=== PATIENT | male | born 1960 | race Caucasian/White ===

== ENCOUNTER 2023-06-13 13:16 | Outpatient (REF) | payer OTHER, MEDICAID, SELFPAY ==
--- NOTE | ~2023-06-13 | XR_ITS ---
EXAMINATION: XR SHOULDER, RIGHT CLINICAL INFORMATION: Pain in right shoulder COMPARISON: None available. TECHNIQUE: AP neutral, scapular Y, and axillary views of the right shoulder. FINDINGS: The bones and soft tissues are normal. No fracture. Glenohumeral and acromioclavicular alignment is anatomic with normal joint space. No abnormal soft tissue calcifications. XR/XR shoulder RT min 2V IMPRESSION: No bony abnormality.
== END 2023-06-13 13:17 | disposition home or self-care (01) ==
LOC: HO.HOSX 13:16
PROVIDERS: Visit Provider Physician Assistant
DX: M25.511 Pain in right shoulder (principal)
CPT/HCPCS: 20610; 73030; J3301

== ENCOUNTER 2023-06-13 13:46 | Outpatient (AMB) | payer OTHER, MEDICAID, SELFPAY ==
--- NOTE | 2023-06-13 14:12 | MHC.OFFVIS ---
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 Sandoval. Patient reports pain comes with certain movements. His pain increase last month, stating with a quick jerk motion while using a fly swatter. Denies injury, numbness or tingling. He denies any weakness in his shoulder. He denies any fevers or chills. He did undergo right shoulder arthroscopic surgery on 09/22/2022. He continues with his home stretching program. Allergies No Known Allergies Allergy (Verified 06/13/23 14:14) [facility] Surgical History (Updated 06/13/23 @ 14:26 by AYDEN Jiang) History of ankle surgery Hx of shoulder surgery Social History (Updated 06/13/23 @ 14:21 by AYDEN Jiang) Patient Tobacco Use Status: Never used Tobacco Current occupational status: unemployed Current occupation: right hand dominant Physical Exam Vital Signs: BMI result Body Mass Index 26.5 Const Other: Well-nourished well-developed very friendly male awake alert and oriented x3 in no acute distress Extrem Other: Bilateral upper extremity examination shows good capillary refill, no skin lesions noted, normal sensation light touch Right shoulder examination shows that the surgical incisions are well healed, no erythema slightly decreased range of motion compared to his left shoulder, mild to moderate discomfort resisted forward flexion, 5/5 strength with supraspinatus testing no instability Office Procedures Joint Injection/Drain Joint Injection/Drain Primary Site: right shoulder Prep: site was prepped using aseptic technique Injected: 40 mg of, Kenalog and 1% plain lidocaine Procedure: The patient tolerated the procedure well Coding 30537 - Large joint Procedure code (CPT) selection complete Results Reviewed Results Reviewed: 06/13/23 14:49 Lidocaine HCl 2 % MPF [Xylocaine 2 % MPF] 5 ml .ROUTE .STK-MED ONE Triamcinolone Acetonide [Kenalog-40] 40 mg .ROUTE .STK-MED ONE Assessment & Plan Assessment & Plan (1) Right shoulder pain: Code(s): M25.511 - Pain in right shoulder Plan Mr. Dueñas presents with right shoulder pain most likely due to rotator cuff tendinitis. I had a lengthy discussion with the patient regarding the treatment options. The risks and benefits of a cortisone injection were discussed at length with the patient. The patient wished to proceed. He tolerated the right shoulder cortisone injection well. He will continue with his home stretching program. The do's and don'ts of lifting were discussed at length with the patient. He will follow up with me on an as-needed basis should his symptoms not plateau at an unacceptable level over the next few months. Feel free to call me at any time should questions regarding his orthopedic management arise. I spent 22 minutes in reviewing the patient's records and imaging studies, seeing the patient and documenting in the medical record. Orders: Orders XR shoulder RT min 2V 06/13/23 M25.511 - Pain in right shoulder Naresh-Sandi Sparks PA-C AMB Joint Injection/Aspiration 06/13/23 M25.511 - Pain in right shoulder Patricio Sandoval MD Coding Level of Care Code Est Pt Level 2 (34304) Diagnoses Right shoulder pain M25.511 CPT Codes Coding - 50120 Large joint: 53687 - Large joint ([id number])
[2023-06-13 14:14] VITALS: BMI 26.5
== END 2023-06-13 15:01 | disposition home or self-care (01) ==
PROVIDERS: PCP Internal Medicine; Visit Provider Physician Assistant
DX: M25.511 Pain in right shoulder (principal)
CPT/HCPCS: 20610; 99204

== ENCOUNTER 2024-10-16 10:08 | Outpatient (REF) | payer MEDICARE, MEDICAID, SELFPAY | END 2024-10-16 10:09 | disposition home or self-care (01) | LOC: HO.HOSX 10:08 | PROVIDERS: Visit Provider Orthopaedic Surgery | DX: M25.561 Pain in right knee (principal) | CPT/HCPCS: 73562; 99212 ==

== ENCOUNTER 2024-10-16 10:24 | Outpatient (AMB) | payer MEDICARE, MEDICAID, SELFPAY ==
--- OUTSIDE RECORDS SUMMARY | 2024-10-16 10:27 | XMS_ITS ---
Author Name [facility] Organization Unknown History of Medication Use Medication Directions Dispensed Refills Start Date End Date Stat us ibuprofen (MOTRIN) 800 mg tablet Take 1 tablet (800 mg total) by mouth 3 times daily (every 8 hours) as needed for mild pain. 04/28/2023 active gabapentin (NEURONTIN) 300 MG capsule Take 1 capsule (300 mg total) by mouth nightly. 04/28/2023 active Problems Problem Status Onset Date Problem Type Date of Resoluti on Source Pain in left ankle and joints of left foot active EncounterDiagnosisAct CCT
--- NOTE | 2024-10-16 10:37 | MHC.OFFVIS ---
Vital Signs 10/16/24 10:49 Height 5 ft 10 in Weight 186 lb BMI 26.7 Intake Visit Reasons: Right knee pain and giving way Intake Note: Tima is a 63 year old male who presents with complaints of progressively worsening right knee pain and giving way. The patient describes his pain as sharp in nature. Most of the pain is along the medial and posterior aspects of his right knee. His symptoms have gotten somewhat worse over the last year in spite of continued non operative treatments. He did have a cortisone injection given into his right knee earlier this year by another provider which gave him only temporary relief. He has tried Tylenol and ibuprofen which gave him minimal relief. Allergies No Known Allergies Allergy (Verified 10/16/24 10:38) Medication List - Last Reconciled 10/16/24 by Patricio Sandoval MD ibuprofen 800 mg PO TID PRN PFSH Surgical History Hx of shoulder surgery History of ankle surgery Social History Patient Tobacco Use Status: Never used Tobacco Current occupational status: unemployed Current occupation: right hand dominant Physical Exam Vital Signs: BMI result Body Mass Index 26.7 Const Other: Well-nourished well-developed very friendly male awake alert and oriented x3 in no acute distress Extrem Other: Bilateral lower extremity examination shows good capillary refill, no skin lesions noted, normal sensation light touch Right knee examination shows a minimal effusion, minimal crepitus with range of motion, tenderness along his medial joint line, positive Renetta's test, no instability Results Reviewed Results Reviewed: Standing full weight-bearing x-rays of the patient's right knee taken previously show mild diffuse joint space narrowing, no acute bony abnormalities MRI of the patient's right knee shows mild diffuse degenerative changes as well as a tear of the medial meniscus Assessment & Plan Assessment & Plan (1) Tear of medial meniscus of right knee: Code(s): S83.241A - Other tear of medial meniscus, current injury, right knee, initial encounter Category: Medical Plan Mr. Dueñas presents with right knee pain and mechanical symptoms due to a medial meniscus tear. I had a lengthy discussion with the patient regarding the treatment options. At this point the patient's symptoms are tolerable to him. He will continue with his activity modifications. If his symptoms do worsen in the future we will further discuss the risks and benefits of right knee arthroscopic surgery. That surgery would most likely involve right knee arthroscopic partial medial meniscectomy. Feel free to call me at any time should questions regarding his orthopedic management arise. I spent 22 minutes in reviewing the patient's records and imaging studies, seeing the patient and documenting in the medical record. Orders: Orders XR knee RT 3V Today M25.561 - Pain in right knee Medications: New methylprednisolone (Medrol (Michael)) PO PER PKG DIR 21 ea 0RF Coding Level of Care Code Est Pt Level 3 (15041) Complex EM visit Add On G2211 Diagnoses Tear of medial meniscus of right knee S83.241A
[2024-10-16 10:49] VITALS: BMI 26.7
== END 2024-10-16 11:04 | disposition home or self-care (01) ==
PROVIDERS: PCP Internal Medicine; Visit Provider Orthopaedic Surgery
DX: S83.241A Other tear of medial meniscus, current injury, right knee, initial encounter (principal)
CPT/HCPCS: 99213; G2211

== ENCOUNTER 2024-12-12 07:08 | Outpatient (REF) | payer BC, MEDICAID, SELFPAY ==
--- NOTE | ~2024-12-12 | XR_ITS ---
EXAMINATION: XR ELBOW, RIGHT CLINICAL INFORMATION: M25.521 - Pain in right elbow COMPARISON: None available. TECHNIQUE: AP, lateral, and oblique views of the right elbow. FINDINGS: No fracture, dislocation, or suspicious bone lesion. Normal alignment. No evidence of elbow joint effusion. Joint spaces appear normal. Small enthesophytes abutting the epicondyles, and radial tuberosity. Moderate size olecranon spur with mild overlying soft tissue swelling. Soft tissues otherwise normal. XR/XR elbow RT min 3V IMPRESSION: 1. No acute bony abnormalities. No joint effusion. 2. Moderate size olecranon spur with mild overlying soft tissue swelling. 3. Enthesopathy of the epicondyles and radial tuberosity. Electronically signed by: Jaren Corley MD 12/12/2024 02:48 PM JO[facility]IM
--- OUTSIDE RECORDS SUMMARY | 2024-12-12 07:10 | XMS_ITS | Clinical Summary ---
Author Organization [facility] Address [address] [place] [address] Care Team Providers Care Metallurgical Lab Technician Name Role Phone Tima Ferguson MD Primary Care Provider [phone] Allergies No known active allergies Medications Medication Sig Dispensed Refills Start Date End Date Status gabapentin (NEURONTIN) 600 MG tablet Take 600 mg by mouth every night at bedtime. 0 06/21/2022 Active ibuprofen 800 MG tablet TAKE 1 TABLET BY MOUTH EVERY 8 HOURS WITH MEALS 0 06/22/2022 Active Active Problems Problem Noted Date Diagnosed Date Septic olecranon bursitis of right elbow 021 Family History Medical History Relation Name Comments Diabetes Father Relation Name Status Comments Father Social History Tobacco Use Types Packs/Day Years Used Date Smoking Tobacco: Never Assessed Tobacco Cessation:Counseling Given: Not Answered Sex and Gender Information Value Date Recorded Sex Assigned at Not on file Gender Identity Not on file Sexual Orientation Not on file Job Start Date Occupation Industry Not on file Not on file Not on file Last Filed Vital Signs Vital Sign Reading Time Taken Comments Blood Pressure - - Pulse - - Temperature - - Respiratory Rate - - Oxygen Saturation - - Inhaled Oxygen Concentration - - Weight 83.5 kg (184 lb) 08/15/2022 10:31 AM EDT Height 167.6 cm (5' 6 ) 08/15/2022 10:31 AM EDT Body Mass Index 29.7 08/15/2022 10:31 AM EDT Plan of Treatment Health Maintenance Due Date Last Done Comments Hepatitis C Screening 1960 COVID-19 Vaccine (#1) 05/10/1963 Depression Screening 1974 BMI Counseling 1980 Preventative Health Evaluation 1980 Colon Cancer Screening (Colonoscopy) 2007 Shingrix-Zoster Vaccine (1 of 2) 2012 DTap / Tdap / Td (2 - Tdap) 01/04/2015 01/04/2005 Influenza Vaccine (#1) 2024 RSV Adult > 60+ Yrs or Pregn ant (1 - 1-dose 75+ series) 2037 Hepatitis B Vaccines Aged Out No long er eligible based on patient's age to complete this topic Pneumococcal Vaccine Aged Out No long er eligible based on patient's age to complete this topic RSV Ped < 20 months Aged Out No longe r eligible based on patient's age to complete this topic Care Teams Metallurgical Lab Technician Relationship Specialty Start Date End Date Vinagre, Faisal, MD [address] [place] [address] PCP - General Internal Medicine 05/31/21
--- OUTSIDE RECORDS SUMMARY | 2024-12-12 07:10 | XMS_ITS | Encounter Summary ---
Author Organization [facility] Address [address] [place] [address] Care Team Providers Care Fish Net Maker Name Role Phone Unavailable Primary Care Provider Unavailabl e Encounter Details Date Type Department Care Team (Latest Contact Info) Description 11/26/2020 Lab Requisition [facility] COVID [address] Through [address] [place] [address] [address] [place] [address] Vincent Dockery MD [address] [place] [address] [phone] Encounter for laboratory testing for COVID-19 virus Social History Tobacco Use Types Packs/Day Years Used Date Smoking Tobacco: Never Assessed Sex and Gender Information Value Date Recorded Sex Assigned at Not on file Gender Identity Not on file Sexual Orientation Not on file documented as of this encounter Plan of Treatment Not on file documented as of this encounter Procedures Procedure Name Priority Date/Time Associated Diagnosis Comments COVID-19 RT-PCR ([facility]) Routine 11/26/2020 4:32 PM EST Encounter for laboratory testing for COVID-19 virus [ICD-10-CM] documented in this encounter Results * COVID-19 RT-PCR (Abdi Yuan) (11/26/2020 4:32 PM EST) COVID-19 RT-PCR SARS-COV-2 NOT DETECTED Not Detected 11/28/2020 2:11 PM EST [employer] Comment: ADDITIONAL INFORMATION The [facility] COVID-19 RT-PCR Assay is Real-Time Reverse Physics Department Chair Polymerase Chain Reaction (compressor assembler-PCR) for the in vitro qualitative detection of three SARS-Cov-2 target sequences unique to the coronavirus disease 2019 (COVID-19). This is an Emergency Use Authorization (EUA) in vitro diagnostic (IVD) test that has been modified to include the [employer] automated liquid handler. Its analytical performance characteristics have been determined by the department of sociology chair and verified by [facility] in a manner consistent with CLIA requirements. This test may be used for clinical purposes and should not be regarded as purely investigational or for research use only. This laboratory is certified under the Clinical Laboratory Improvement Amendments of 1988 (CLIA) as qualified to perform high complexity clinical testing. Reference interval for this testing is SARS-CoV-2 Not Detected. Fact sheets for this Emergency Use Authorization assay can be found at the following links: For Healthcare Providers: https://www.fda.gov/media/692655/download For Patients: https://www.[employer].gov/media/953926/download TEST LIMITATIONS Positive results are indicative of the presence of SARS-CoV-2 RNA; clinical correlation with patient history and other diagnostic information is necessary to determine patient infection status. Positive results do not rule out bacterial infection or co-infection with other viruses. The agent detected may not be the definite cause of disease. Negative results do not exclude SARS-CoV-2 infection and should not be used as the sole basis for patient management decisions. Negative results must be combined with clinical observations, patient history, and epidemiological information. Improper sample collection, transport or storage may impede the ability of the assay to detect target sequences. Inconclusive specimens are not repeated, and recollection and submission of a new sample is recommended. The performance of the TaqPath COVID-19 Combo Kit was established using nasopharyngeal swab, nasopharyngeal aspirate, and bronchoalveolar lavage (BAL) specimens. The limit of detection for the assay was determined to be 0.75copies/uL in the specimens of nasopharyngeal swab. Other specimen types may be need for further validation before testing on this system. For further details refer to the [employer] TaqPath COVID-19 Combo Kit EUA submission (https://www.[employer].gov/media/056430/download). ----- Test performed by [facility], [address] [place] [address] CLIA# [id number] ?[id number] ? Smooth Nathan M.D., Ph.D., [facility], Clinical Sales Effectiveness Manager Microbiology Nasopharyngeal swab / Unknown 11/26/2020 4:32 PM EST 11/26/2020 4:32 PM EST Narrative [facility] - 11/28/2020 2:11 PM EST Performed at [facility], [address] [place] [address], [place] Lic 0695, CLIA [id number] Vincent Dockery MD MICROBIOLOGY - GENER AL ORDERABLES [address] [place] [address] documented in this encounter Visit Diagnoses Diagnosis Encounter for laboratory testing for COVID-19 virus documented in this encounter
--- OUTSIDE RECORDS SUMMARY | 2024-12-12 07:10 | XMS_ITS | Clinical Summary ---
Author Organization [facility] Address [address] [place] [address] Care Team Providers Care Cleaning Team Member Name Role Phone Unavailable Primary Care Provider Unavailabl e Allergies No known active allergies Medications Medication Sig Dispensed Refills Start Date End Date Status gabapentin (NEURONTIN) 300 MG capsuleIndications:P ain in left ankle and joints of left foot Take 1 capsule (300 mg total) by mouth nightly. 30 capsule 1 05/29/2023 Active ibuprofen (MOTRIN) 800 mg tabletIndications:Pa in in left ankle and joints of left foot Take 1 tablet (800 mg total) by mouth 3 times daily (every 8 hours) as needed for mild pain. 30 tablet 1 05/29/2023 Active gabapentin (NEURONTIN) 300 MG capsuleIndications:P ain in left ankle and joints of left foot Take 1 capsule (300 mg total) by mouth nightly. 30 capsule 3 04/24/2023 Active ibuprofen (MOTRIN) 800 mg tabletIndications:Pa in in left ankle and joints of left foot Take 1 tablet (800 mg total) by mouth nightly. 30 tablet 04/24/2023 Active Social History Tobacco Use Types Packs/Day Years Used Date Smoking Tobacco: Never Assessed Sex and Gender Information Value Date Recorded Sex Assigned at Not on file Gender Identity Not on file Sexual Orientation Not on file Plan of Treatment Health Maintenance Due Date Last Done Comments Hepatitis C Virus Screening 1960 HIV Screening 1975 DTaP/Tdap/Td Vaccines (1 - Tdap) 1981 Colonoscopy 2007 Pneumococcal Vaccines 50+ (1 of 1 - PCV) 2012 Zoster (Shingles) Vaccine (1 of 2) 2012 Influenza Vaccine 06/05/2024 COVID-19 Vaccine ( - 2023-2 5 season) 2024 RSV Vaccine 60 years and old er and Patients (1 - 1-dose 75+ series) 2037 Hepatitis B Vaccines Aged Out No long er eligible based on patient's age to complete this topic Pneumococcal Vaccine: Pediat nery (0-5 Years) and At-Risk Patients (6 to 49 Years) Aged Out No longer [place] [id number] Tejas Dueñas Personal/Family Self [address] [place] [phone]
== END 2024-12-12 07:09 | disposition home or self-care (01) ==
LOC: HO.HOSX 07:08
DX: M21.921 Unspecified acquired deformity of right upper arm (principal)
CPT/HCPCS: 73080

== ENCOUNTER 2024-12-12 14:15 | Outpatient (AMB) | payer BC, MEDICAID, SELFPAY ==
--- OUTSIDE RECORDS SUMMARY | 2024-12-12 14:34 | XMS_ITS | Encounter Summary ---
Author Organization [facility] Address [address] [place] [address] Care Team Providers Care Administrative Processor Name Role Phone Unavailable Primary Care Provider Unavailabl e Encounter Details Date Type Department Care Team (Latest Contact Info) Description 11/26/2020 Lab Requisition [facility] COVID [address] Through [address] [place] [address] [address] [place] [address] Vincent Dockery MD [address] [place] [address] [phone] Encounter for laboratory testing for COVID-19 virus [...] Date/Time Associated Diagnosis Comments COVID-19 RT-PCR ([facility]) Routine 11/26/2020 4:32 PM EST Encounter for laboratory testing for COVID-19 virus [ICD-10-CM] documented in this encounter Results * COVID-19 RT-PCR (Abdi Yuan) (11/26/2020 4:32 PM EST) COVID-19 RT-PCR SARS-COV-2 NOT DETECTED Not Detected 11/28/2020 2:11 PM EST [email or web address] Comment: ADDITIONAL INFORMATION The [facility] COVID-19 RT-PCR Assay is Real-Time Reverse Market Development Executive Polymerase Chain Reaction (buggy loader-PCR) for the in vitro qualitative detection of three SARS-Cov-2 target sequences unique to the coronavirus disease 2019 (COVID-19). This is an Emergency Use Authorization (EUA) in vitro diagnostic (IVD) test that has been modified to include the [employer] automated liquid handler. Its analytical performance characteristics have been determined by the switch crew supervisor and verified by [facility] in a manner consistent with CLIA [...] at the following links: For Healthcare Providers: https://www.fda.gov/media/431838/download For Patients: https://www.Meditech.gov/media/728418/download TEST LIMITATIONS Positive results are indicative of [...] system. For further details refer to the [employer] TaqPath COVID-19 Combo Kit EUA submission (https://www.Meditech.gov/media/335506/download). ----- Test performed by [facility], [address] [place] [address] CLIA# [id number] ?[id number] ? Smooth Nathan M.D., Ph.D., [facility], Clinical Assistant Family Teacher Microbiology Nasopharyngeal swab / Unknown 11/26/2020 4:32 PM EST 11/26/2020 4:32 PM EST Narrative [facility] - 11/28/2020 2:11 PM EST Performed at [facility], [address] [place] [address], [place] Lic 0695, CLIA [id number] Vincent Dockery MD MICROBIOLOGY - GENER AL ORDERABLES [address] [place] [address] documented in this encounter Visit Diagnoses Diagnosis Encounter for laboratory testing for COVID-19 virus documented in this encounter
--- OUTSIDE RECORDS SUMMARY | 2024-12-12 14:34 | XMS_ITS | Clinical Summary ---
Author Organization [facility] Address [address] [place] [address] Care Team Providers Care Proof Press Operator Name Role Phone Unavailable Primary Care Provider [...] [place] [id number] Tejas Dueñas Personal/Family Self [address] [place] [phone]
--- OUTSIDE RECORDS SUMMARY | 2024-12-12 14:34 | XMS_ITS | Clinical Summary ---
Author Organization [facility] Address [address] [place] [address] Care Team Providers Care Precision Farming Coordinator Name Role Phone Tima Ferguson MD Primary Care Provider [phone] Allergies No known active allergies Medications Medication [...] age to complete this topic Care Teams Precision Farming Coordinator Relationship Specialty Start Date End Date Vinagre, Faisal, MD [address] [place] [address] PCP - General Internal Medicine 05/31/21
[2024-12-12 14:36] VITALS: BMI 26.5
--- NOTE | 2024-12-12 14:36 | A.OFFVIS_ITS ---
Vital Signs 12/12/24 14:36 Height 5 ft 10 in Weight 185 lb BMI 26.5 Intake Visit Reasons: Newprob-Right elbow pain Intake Note: Tima is a 64 year old right hand dominant male who presents today for a new problem visit with complaints of right elbow pain. Patient rpeorts that he has had pain in the right elbow for quite some time now. His pain started off intermittent but has grown consistently painful. The elbow becomes inflamed and red to where he is unable to bend fully. He takes ibuprofen 800 mg when his pain increased. He has some mild numbness and tingling in the hand and had increased pain when making a fist. He reports history of having bone spurs removed from his right shoulder with Dr. Sandoval . Allergies No Known Allergies Allergy (Verified 10/16/24 10:38) [facility] HPI Newprob-Right elbow pain: Details: Tima is a 64 year old right hand dominant male who presents today for a new problem visit with complaints of right elbow pain. Patient rpeorts that he has had pain in the right elbow for quite some time now. His pain started off intermittent but has grown consistently painful. The elbow becomes inflamed and red to where he is unable to bend fully. He takes ibuprofen 800 mg when his pain increased. He has some mild numbness and tingling in the hand and had increased pain when making a fist. He reports history of having bone spurs removed from his right shoulder with Dr. Sandoval . [facility] Surgical History Hx of shoulder surgery History of ankle surgery Social History Patient Tobacco Use Status: Never used Tobacco Current occupational status: unemployed Current occupation: right hand dominant Review of Systems Const All systems reviewed & are unremarkable except as noted in HPI and below Physical Exam Vital Signs: BMI result Body Mass Index 26.5 Extrem Other: Patient's right elbow slightly edematous to inspection No erythema, ecchymosis noted No lacerations, abrasions, open areas No evidence of infection Patient reports no tenderness to palpation of the olecranon process of the right elbow However, there is a palpable hard deformity of the olecranon process bone, consistent with bone spur viewed on x-ray Patient was able to flex the right elbow to approximately 160 degrees without difficulty Patient is able to extend the right elbow to 0 degrees without difficulty Distal sensation intact Capillary refill brisk Results Reviewed Results Reviewed: X-rays obtained in the office today and independently reviewed by me, Corey Gaxiola PA-C, demonstrate marked spurring of the olecranon process of the right elbow, concerning for bone spur versus calcific tendinitis of distal triceps tendon. Assessment & Plan Assessment & Plan (1) Acquired deformity of right elbow: Code(s): M21.921 - Unspecified acquired deformity of right upper arm Category: Medical Plan 1. Bone spur of right elbow Patient is educated about this condition Patient is educated about the typical treatment course At this time, patient was informed that this bone spur is not something that we would be able to remove in our practice Patient was offered a referral to physical therapy for range of motion and strengthening of the right elbow, but declines Patient states that he will follow-up with [facility], as he already has been evaluated at [facility] for this condition and was told that they did not perform this surgery either Patient will follow-up as needed with any acute concerns Orders: Orders XR elbow RT min 3V Today M25.521 - Pain in right elbow Coding Level of Care Code Est Pt Level 3 (56483) Diagnoses Acquired deformity of right elbow M21.921
== END 2024-12-12 14:51 | disposition home or self-care (01) ==
PROVIDERS: PCP Internal Medicine
DX: M21.921 Unspecified acquired deformity of right upper arm (principal)
CPT/HCPCS: 99213

== ENCOUNTER → 2024-12-12 14:31 | Outpatient (BNV) | payer BC, MEDICAID, SELFPAY | PROVIDERS: Visit Provider Radiology Diagnostic Radiology | DX: M70.21 Olecranon bursitis, right elbow (principal) | CPT/HCPCS: 73080 ==

== ENCOUNTER 2025-03-10 10:03 | Outpatient (AMB) | payer BC, MEDICAID, SELFPAY ==
[2025-03-10 10:09] VITALS: BMI 26.5
--- NOTE | 2025-03-10 10:09 | A.OFFVIS_ITS ---
Vital Signs 03/10/25 10:09 03/10/25 10:09 Height 5 ft 10 in 5 ft 10 in Weight 185 lb 185 lb BMI 26.5 26.5 Intake Visit Reasons: Left knee pain and giving way Intake Note: Tima is a 64 year old male who presents with complaints of progressively worsening left knee pain and giving way. Describes his pain as sharp in nature. Most of his pain is along the medial aspect of his knee. The patient's symptoms have gotten worse over the last 6 months in spite of continued non operative treatments. His symptoms did worsen several months ago while he was in [place]. He was given a cortisone injection at that time which gave him temporary relief. He states that his left knee will give out several times per day. He has failed the last 6 weeks of conservative treatment which have included Tylenol, ibuprofen, a home exercise program and physical therapy exercises. Allergies No Known Allergies Allergy (Verified 03/10/25 10:16) Medication List - Last Reconciled 03/10/25 by Patricio Sandoval MD ibuprofen 800 mg PO TID PRN omeprazole 20 mg PO DAILY PFSH Surgical History Hx of shoulder surgery History of ankle surgery Social History Patient Tobacco Use Status: Never used Tobacco Current occupational status: unemployed Current occupation: right hand dominant Physical Exam Vital Signs: BMI result Body Mass Index 26.5 Const Other: Well-nourished well-developed very friendly male awake alert and oriented x3 in no acute distress Extrem Other: Bilateral lower extremity examination shows good capillary refill, no skin lesions noted, normal sensation light touch Left knee examination shows a minimal effusion, minimal crepitus with range of motion, tenderness along his medial joint line, positive Renetta's test, no instability Results Reviewed Results Reviewed: Standing full weight-bearing x-rays of the patient's left knee show mild diffuse joint space narrowing, no acute bony abnormalities Assessment & Plan Assessment & Plan (1) Tear of medial meniscus of left knee: Code(s): S83.242A - Other tear of medial meniscus, current injury, left knee, initial encounter Category: Medical Plan Mr. Dueñas presents with progressively worsening left knee pain and mechanical symptoms most likely due to a medial meniscus tear. Thus, I will send the patient for an MRI of his left knee for further evaluation. I will see him back once the MRI is completed to discuss the findings and treatment options. He will contact me prior to that time should his symptoms worsen in any way. I spent 20 minutes in reviewing the patient's records and imaging studies, seeing the patient and documenting in the medical record. Orders: Orders XR knee LT 3V Today M25.562 - Pain in left knee MR knee LT wo con Today S83.242A - Other tear of medial meniscus, current injury, left knee, initial encounter Coding Level of Care Code Est Pt Level 3 (74771) Complex EM visit Add On G2211 Diagnoses Tear of medial meniscus of left knee S83.242A
--- OUTSIDE RECORDS SUMMARY | 2025-03-10 11:27 | XMS_ITS | Clinical Summary ---
Author Organization [facility] Address [address] [place] [address] Care Team Providers Care Leather Tooler Name Role Phone Unavailable Primary Care Provider Unavailabl e Allergies No known active allergies Medications gabapentin (NEURONTIN) 300 MG capsuleIndicati ons:Pain in left ankle and joints of left foot Take 1 capsule (300 mg total) by mouth nightly. 30 capsule 1 05/29/2023 Active ibuprofen (MOTRIN) 800 mg tabletIndicatio ns:Pain in left ankle and joints of left foot Take 1 tablet (800 mg total) by mouth 3 times daily (every 8 hours) as needed for mild pain. 30 tablet 1 05/29/2023 Active gabapentin (NEURONTIN) 300 MG capsuleIndicati ons:Pain in left ankle and joints of left foot Take 1 capsule (300 mg total) by mouth nightly. 30 capsule 3 04/24/2023 Active ibuprofen (MOTRIN) 800 mg tabletIndicatio ns:Pain in left ankle and joints of left foot Take 1 tablet (800 mg total) by mouth nightly. 30 tablet 04/24/2023 Active Social History Tobacco Use Types Packs/Day Years Used Date Smoking Tobacco: Never Assessed Sex and Gender Information Value Date Recorded Sex Assigned at Not on file Legal Sex Male 7:41 PM EST Gender Identity Not on file Sexual Orientation Not on file Plan of Treatment Health Maintenance Due Date Last Done Comments Hepatitis C Virus Screening 1960 HIV Screening 1975 DTaP/Tdap/Td Vaccines (1 - Tdap) 1981 Colonoscopy 2007 Pneumococcal Vaccines 50+ (1 of 1 - PCV) 2012 Zoster (Shingles) Vaccine (1 of 2) 2012 COVID-19 Vaccine ( - 2023-2 5 season) 2024 Influenza Vaccine 06/05/2025 RSV Vaccine 60 years and old er and Patients (1 - 1-dose 75+ series) 2037 Hepatitis B Vaccines Aged Out No long er eligible based on patient's age to complete this topic [facility]
--- OUTSIDE RECORDS SUMMARY | 2025-03-10 11:27 | XMS_ITS | Clinical Summary ---
Author Organization [facility] Address [address] [place] [address] Care Team Providers Care Supervisor Wood Crew Name Role Phone Tima Ferguson MD Primary Care Provider [phone] Allergies No known active allergies Medications Medication [...] age to complete this topic Care Teams Supervisor Wood Crew Relationship Specialty Start Date End Date Vinagre, Faisal, MD [address] [place] [address] PCP - General Internal Medicine 05/31/21
--- OUTSIDE RECORDS SUMMARY | 2025-03-10 11:27 | XMS_ITS | Encounter Summary ---
Author Organization [facility] Address [address] [place] [address] Care Team Providers Care Md Ophthalmologist Name Role Phone Unavailable Primary Care Provider Unavailabl e Encounter Details Date Type Department Care Team (Latest Contact Info) Description 11/26/2020 Lab Requisition [facility] COVID [address] Through [address] [place] [address] [address] [place] [address] Vincent Dockery MD [address] [place] [address] Encounter for laboratory testing for COVID-19 virus [...] Date/Time Associated Diagnosis Comments COVID-19 RT-PCR ([facility]) Routine 11/26/2020 4:32 PM EST Encounter for laboratory testing for COVID-19 virus [ICD-10-CM] documented in this encounter Results * COVID-19 RT-PCR ([facility]) (11/26/2020 4:32 PM EST) COVID-19 RT-PCR SARS-COV-2 NOT DETECTED Not Detected 11/28/2020 2:11 PM EST [employer] Comment: ADDITIONAL INFORMATION The [facility] COVID-19 RT-PCR Assay is Real-Time Reverse Textiles Printer Polymerase Chain Reaction (mobile home mechanic-PCR) for the in vitro qualitative detection of three SARS-Cov-2 target sequences unique to the coronavirus disease 2019 (COVID-19). This is an Emergency Use Authorization (EUA) in vitro diagnostic (IVD) test that has been modified to include the [employer] automated liquid handler. Its analytical performance characteristics have been determined by the field artillery crewmember and verified by The [facility] in a manner consistent with CLIA requirements. [...] at the following links: For Healthcare Providers: https://www.fda.gov/media/545659/download For Patients: https://www.Ketchuppp.gov/Concept.io/450850/download TEST LIMITATIONS Positive results are indicative of [...] system. For further details refer to the [employer] TaqPath COVID-19 Combo Kit EUA submission (https://www.Ketchuppp.gov/media/213528/download). ----- Test performed by The [facility] for [facility], [address] [place] [address] CLIA# [id number] ?[id number] ? Smooth Nathan M.D., Ph.D., [facility] [place], Clinical Director Of Front Office Microbiology Nasopharyngeal swab / Unknown 11/26/2020 4:32 PM EST 11/26/2020 4:32 PM EST Narrative [facility] - 11/28/2020 2:11 PM EST Performed at [facility], [address] [place] [address], [place] Lic 0695, CLIA [id number] us Vincent Dockery MD MICROBIOLOGY - GENERAL ORDERA BLES Final Result [facility] [address] [facility] [place] [address] documented in this encounter Visit Diagnoses Diagnosis Encounter for laboratory testing for COVID-19 virus documented in this encounter
== END 2025-03-10 10:24 | disposition home or self-care (01) ==
LOC: HO.HOS 10:03
PROVIDERS: Visit Provider Orthopaedic Surgery
DX: S83.242A Other tear of medial meniscus, current injury, left knee, initial encounter (principal)
CPT/HCPCS: 99213

== ENCOUNTER → 2025-03-10 10:04 | Outpatient (BNV) | payer BC, MEDICAID, SELFPAY | PROVIDERS: Visit Provider Radiology Diagnostic Radiology | DX: M25.562 Pain in left knee (principal) | CPT/HCPCS: 73562 ==

== ENCOUNTER 2025-03-10 10:52 | Outpatient (REF) | payer MEDICARE, MEDICAID, SELFPAY ==
--- NOTE | ~2025-03-10 | XR_ITS ---
EXAMINATION: XR KNEE, LEFT CLINICAL INFORMATION: M25.562 - Pain in left knee COMPARISON: None available. TECHNIQUE: Three views of the left knee. FINDINGS: No fracture, dislocation, or suspicious bone lesion. Normal bone mineralization. Normal alignment. Minimal medial joint space narrowing. Lateral and patellofemoral compartment joint spaces are normal. No significant joint effusion. Soft tissues appear normal. XR/XR knee LT 3V IMPRESSION: 1. No acute bony abnormalities left knee. 2. Minimal medial compartment osteoarthritis. Electronically signed by: Jaren Corley MD 03/10/2025 10:22 AM EDT
--- OUTSIDE RECORDS SUMMARY | 2025-03-11 12:15 | XMS_ITS | Encounter Summary ---
Author Organization [facility] Address [address] [place] [address] Care Team Providers Care Manager Winter Name Role Phone Unavailable Primary Care Provider Unavailabl e Encounter Details Date Type Department Care Team (Latest Contact Info) Description 11/26/2020 Lab Requisition [facility] COVID Drive Through [address] [place] [address] [address] [place] [address] Vincent Dockery MD [address] [place] [address] Encounter for laboratory testing for COVID-19 virus [...] Date/Time Associated Diagnosis Comments COVID-19 RT-PCR ([facility]) Routine 11/26/2020 4:32 PM EST Encounter for laboratory testing for COVID-19 virus [ICD-10-CM] documented in this encounter Results * COVID-19 RT-PCR ([facility]) (11/26/2020 4:32 PM EST) COVID-19 RT-PCR SARS-COV-2 NOT DETECTED Not Detected 11/28/2020 2:11 PM EST [employer] Comment: ADDITIONAL INFORMATION The [facility] COVID-19 RT-PCR Assay is Real-Time Reverse Seasoner Hand Polymerase Chain Reaction (technical services assistant-PCR) for the in vitro qualitative detection of three SARS-Cov-2 target sequences unique to the coronavirus disease 2019 (COVID-19). This is an Emergency Use Authorization (EUA) in vitro diagnostic (IVD) test that has been modified to include the [facility] automated liquid handler. Its analytical performance characteristics have been determined by the snuff drier and verified by The [facility] in a manner consistent with CLIA requirements. [...] at the following links: For Healthcare Providers: https://www.fda.gov/media/026355/download For Patients: https://www.StoryBlender.gov/Mobixell Networks/665286/download TEST LIMITATIONS Positive results are indicative of [...] system. For further details refer to the [employer] TaqPath COVID-19 Combo Kit EUA submission (https://www.StoryBlender.gov/media/580062/download). ----- Test performed by The [facility] for [facility], [address] [place] [address] CLIA# [id number] ?[id number] ? Smooth Nathan M.D., Ph.D., [facility] [place], Clinical Plant Production Worker Microbiology Nasopharyngeal swab / Unknown 11/26/2020 4:32 PM EST 11/26/2020 4:32 PM EST Narrative [facility] - 11/28/2020 2:11 PM EST Performed at [facility], [address] [place] [address], [place] Lic 0695, CLIA [id number] us Vincent Dockery MD MICROBIOLOGY - GENERAL ORDERA BLES Final Result [facility] [address] [facility] [place] [address] documented in this encounter Visit Diagnoses Diagnosis Encounter for laboratory testing for COVID-19 virus documented in this encounter
--- OUTSIDE RECORDS SUMMARY | 2025-03-11 12:15 | XMS_ITS | Clinical Summary ---
Author Organization [facility] Address [address] [place] [address] Care Team Providers Care Cut Out Marker Name Role Phone Tima Ferguson MD Primary Care Provider [phone] Allergies No known active allergies Medications Medication [...] age to complete this topic Care Teams Cut Out Marker Relationship Specialty Start Date End Date Vinagre, Faisal, MD [address] [place] [address] PCP - General Internal Medicine 05/31/21
--- OUTSIDE RECORDS SUMMARY | 2025-03-11 12:15 | XMS_ITS | Clinical Summary ---
Author Organization [facility] Address [address] [place] [address] Care Team Providers Care Family Practice Nurse Practitioner Name Role Phone Unavailable Primary Care Provider [...] patient's age to complete this topic Insurance [facility]
== END 2025-03-10 10:53 | disposition home or self-care (01) ==
LOC: HO.HOSX 10:52
PROVIDERS: Visit Provider Orthopaedic Surgery
DX: M25.562 Pain in left knee (principal)
CPT/HCPCS: 73562

== ENCOUNTER → 2025-03-29 09:21 | Outpatient (BNV) | payer MEDICARE, MEDICAID, SELFPAY | PROVIDERS: Visit Provider Radiology Diagnostic Radiology | DX: S83.242A Other tear of medial meniscus, current injury, left knee, initial encounter (principal) | CPT/HCPCS: 73721 ==

== ENCOUNTER 2025-03-29 09:24 | Outpatient (REF) | payer MEDICARE, MEDICAID, SELFPAY ==
--- NOTE | ~2025-03-29 | MR_ITS ---
CLINICAL HISTORY: S83.242A - Other tear of medial meniscus, current injury, left knee, ini... MR left knee without contrast Comparison: DX/SR - XR KNEE LT 3V - 03/10/25 10:04 EDT Findings: There is increased signal in the posterior horn of the medial meniscus with abnormal signal reaching the articular surface on a single image, grade 2b. The lateral meniscus is intact. The anterior and posterior cruciate ligaments are intact. The medial and lateral collateral ligaments are intact. There is edema in the subcutaneous fat superficial to the lateral collateral ligaments and anteriorly. The extensor mechanism is intact. There is a mild amount of increased signal in the quadriceps tendon at its insertion upon the patella may indicate mild tendinopathy. There is mild edema in the prepatellar subcutaneous fat. No joint effusion. Subcentimeter gore's cyst. No fracture, stress reaction or aggressive osseous lesion. 7 mm bone island in the lateral tibial plateau. 6 mm cyst in the fibular head. Partial-thickness chondromalacia in the patellofemoral compartment at medial patellar facet. Signal abnormality within cartilage in medial tibiofemoral compartment with a mild amount of partial-thickness chondromalacia. The hyaline cartilage is otherwise preserved. Impression: Suspect tear of the posterior horn of the medial meniscus. This document has been electronically signed by: Marivel Fair MD on 03/31/2025 13:28:44
--- OUTSIDE RECORDS SUMMARY | 2025-03-29 09:27 | XMS_ITS | Encounter Summary ---
Author Organization [facility] Address [address] [place] [address] Care Team Providers Care Color Worker Name Role Phone Unavailable Primary Care Provider Unavailabl e Encounter Details Date Type Department Care Team (Latest Contact Info) Description 11/26/2020 Lab Requisition [facility] COVID Drive Through [address] [place] [address] [address] [place] [address] Vincent Dockery MD [address] [place] [address] Encounter for laboratory testing for COVID-19 virus [...] Date/Time Associated Diagnosis Comments COVID-19 RT-PCR ([facility]) Routine 11/26/2020 4:32 PM EST Encounter for laboratory testing for COVID-19 virus [ICD-10-CM] documented in this encounter Results * COVID-19 RT-PCR ([facility]) (11/26/2020 4:32 PM EST) COVID-19 RT-PCR SARS-COV-2 NOT DETECTED Not Detected 11/28/2020 2:11 PM EST [employer] Comment: ADDITIONAL INFORMATION The [facility] COVID-19 RT-PCR Assay is Real-Time Reverse Accounts Payable Assistant Polymerase Chain Reaction (customer service cashier-PCR) for the in vitro qualitative detection of three SARS-Cov-2 target sequences unique to the coronavirus disease 2019 (COVID-19). This is an Emergency Use Authorization (EUA) in vitro diagnostic (IVD) test that has been modified to include the [employer] automated liquid handler. Its analytical performance characteristics have been determined by the child life assistant and verified by The [facility] in a manner consistent with CLIA requirements. [...] at the following links: For Healthcare Providers: https://www.fda.gov/media/634638/download For Patients: https://www.Plerts.gov/Sicubo/562942/download TEST LIMITATIONS Positive results are indicative of [...] system. For further details refer to the [employer] TaqPath COVID-19 Combo Kit EUA submission (https://www.Plerts.gov/media/706220/download). ----- Test performed by [facility] for [facility], [address] [place] [address] CLIA# [id number] ?[id number] ? Smooth Nathan M.D., Ph.D., [facility] [place], Clinical Pipe Buffer Microbiology Nasopharyngeal swab / Unknown 11/26/2020 4:32 PM EST 11/26/2020 4:32 PM EST Narrative [facility] - 11/28/2020 2:11 PM EST Performed at [facility], [address] [place] [address], [place] Lic [address]695, CLIA [id number] us Vincent Dockery MD MICROBIOLOGY - GENERAL ORDERA BLES Final Result [facility] [address] [facility] [place] [address] documented in this encounter Visit Diagnoses Diagnosis Encounter for laboratory testing for COVID-19 virus documented in this encounter
== END 2025-03-29 09:25 | disposition home or self-care (01) ==
LOC: HO.MRI 09:24
PROVIDERS: Visit Provider Orthopaedic Surgery
DX: S83.242A Other tear of medial meniscus, current injury, left knee, initial encounter (principal)
CPT/HCPCS: 73721

== ENCOUNTER 2025-04-15 08:47 | Outpatient (REF) | payer MEDICARE, MEDICAID, SELFPAY ==
--- NOTE | ~2025-04-15 | XR_ITS ---
EXAMINATION: XR SHOULDER 2 OR MORE VIEWS LEFT HISTORY: M25.512 - Pain in left shoulder COMPARISON: There are no prior studies available for comparison. FINDINGS: Two views of the left shoulder are submitted. Osseous mineralization is normal. There is no fracture or dislocation. The glenohumeral joint is maintained. There is moderate osteoarthritis of the AC joint with joint space narrowing and osteophyte formation. Soft tissue calcifications adjacent to the greater tuberosity of the humerus are likely related to the rotator cuff. XR/XR shoulder LT min 2V IMPRESSION: Moderate osteoarthritis of the AC joint. Probable rotator cuff calcification. Electronically signed by: Dewey Herron MD 04/15/2025 02:22 PM EDT
--- OUTSIDE RECORDS SUMMARY | 2025-04-16 09:12 | XMS_ITS | Encounter Summary ---
Author Organization [facility] Address [address] [place] [address] Care Team Providers Care Service Operations Manager Name Role Phone Unavailable Primary Care Provider Unavailabl e Encounter Details Date Type Department Care Team (Latest Contact Info) Description 11/26/2020 Lab Requisition [facility] COVID Drive Through [address] [place] [address] [address] [place] [address] Vincent Dockery MD [address] [place] [address] Encounter for laboratory testing for COVID-19 virus [...] Date/Time Associated Diagnosis Comments COVID-19 RT-PCR ([facility]) Routine 11/26/2020 4:32 PM EST Encounter for laboratory testing for COVID-19 virus [ICD-10-CM] documented in this encounter Results * COVID-19 RT-PCR ([facility]) (11/26/2020 4:32 PM EST) COVID-19 RT-PCR SARS-COV-2 NOT DETECTED Not Detected 11/28/2020 2:11 PM EST [employer] Comment: ADDITIONAL INFORMATION The [facility] COVID-19 RT-PCR Assay is Real-Time Reverse Cylinder Inspector Polymerase Chain Reaction (windsmith-PCR) for the in vitro qualitative detection of three SARS-Cov-2 target sequences unique to the coronavirus disease 2019 (COVID-19). This is an Emergency Use Authorization (EUA) in vitro diagnostic (IVD) test that has been modified to include the Droplet Technology automated liquid handler. Its analytical performance characteristics have been determined by the nurse ob and verified by The [facility] in a manner consistent with CLIA requirements. [...] at the following links: For Healthcare Providers: https://www.fda.gov/media/487907/download For Patients: https://www.United Mobile Apps.gov/Empressr/802442/download TEST LIMITATIONS Positive results are indicative of [...] system. For further details refer to the [employer] TaqPath COVID-19 Combo Kit EUA submission (https://www.United Mobile Apps.gov/media/969362/download). ----- Test performed by The [facility], [address] [place] [address] CLIA# [id number] ?[id number] ? Smooth Nathan M.D., Ph.D., [facility] [place], Clinical Store Leader Microbiology Nasopharyngeal swab / Unknown 11/26/2020 4:32 PM EST 11/26/2020 4:[address] [facility] - 11/28/2020 2:11 PM EST Performed at [facility], [address] [place] [address], [place] Lic 0695, CLIA [id number] us Vincent Dockery MD MICROBIOLOGY - GENERAL ORDERA BLES Final Result [facility] [address] [place] [address] documented in this encounter Visit Diagnoses Diagnosis Encounter for laboratory testing for COVID-19 virus documented in this encounter
== END 2025-04-15 08:48 | disposition home or self-care (01) ==
LOC: HO.HOSX 08:47
PROVIDERS: Visit Provider Orthopaedic Surgery
DX: M25.312 Other instability, left shoulder (principal); M25.812 Other specified joint disorders, left shoulder
CPT/HCPCS: 73030; 99212

== ENCOUNTER 2025-04-15 10:57 | Outpatient (AMB) | payer MEDICARE, MEDICAID, SELFPAY ==
--- NOTE | 2025-04-15 11:03 | MHC.OFFVIS ---
Vital Signs 04/15/25 11:04 Height 5 ft 10 in Weight 185 lb BMI 26.5 Intake Visit Reasons: Left shoulder pain and weakness Intake Note: Tima is a 64 year old right hand dominant male who presents with complaints of progressively worsening left shoulder pain and weakness. The patient did undergo right shoulder surgery in 2021. He reports minimal discomfort in his right shoulder. He describes his left shoulder pain as sharp in nature. Most of the pain is along the medial aspect of his left shoulder. He did injure his shoulder approximately 1 year ago while lifting a heavy object. Since that time his symptoms have gotten worse. He has failed the last 6 weeks of conservative treatment which has included Tylenol, anti-inflammatory medicines, physical therapy exercises and a home exercise program. The patient also has intermittent left knee discomfort. He states that his left knee discomfort is tolerable to him at this point. Allergies No Known Allergies Allergy (Verified 04/15/25 11:07) Medication List - Last Reconciled 04/15/25 by Patricio Sandoval MD ibuprofen 800 mg PO TID PRN omeprazole 20 mg PO DAILY PFSH Surgical History Hx of shoulder surgery History of ankle surgery Social History Patient Tobacco Use Status: Never used Tobacco Current occupational status: unemployed Current occupation: right hand dominant Physical Exam Vital Signs: BMI result Body Mass Index 26.5 Const Other: Well-nourished well-developed very friendly male awake alert and oriented x3 in no acute distress Extrem Other: Left shoulder examination shows decreased range of motion when compared to his right shoulder, 4+ out of 5 strength with supraspinatus testing, positive impingement signs, no instability Left knee examination shows mild discomfort with range of motion, minimal crepitus with range of motion, positive Renetta's test, no instability Results Reviewed Results Reviewed: X-rays of the patient's left shoulder show severe acromioclavicular joint narrowing, a type 2 acromion, no acute bony abnormalities MRI of the patient's left knee shows mild diffuse degenerative changes as well as a small tear of the medial meniscus. Assessment & Plan Assessment & Plan (1) Rotator cuff insufficiency of left shoulder: Code(s): M25.312 - Other instability, left shoulder Category: Medical Plan Mr. Dueñas presents with progressively worsening left shoulder pain and weakness due to impingement syndrome and possible rotator cuff tearing. Thus, I will send the patient for an MRI of his left shoulder for further evaluation. I will see him back once the MRI is completed to discuss the findings and treatment options. The patient also has intermittent left knee discomfort due to a small medial meniscus tear. At this point the patient's left knee discomfort is tolerable to him. Feel free to call me at any time should questions regarding his orthopedic management arise. I spent 21 minutes in reviewing the patient's records and imaging studies, seeing the patient and documenting in the medical record. Orders: Orders XR shoulder LT min 2V Today M25.512 - Pain in left shoulder MR shoulder LT wo con Today M25.312 - Other instability, left shoulder Coding Level of Care Code Est Pt Level 3 (68668) Complex EM visit Add On G2211 Diagnoses Rotator cuff insufficiency of left shoulder M25.312
[2025-04-15 11:04] VITALS: BMI 26.5
== END 2025-04-15 11:44 | disposition home or self-care (01) ==
LOC: HO.HOS 10:57
PROVIDERS: Visit Provider Orthopaedic Surgery
DX: M25.312 Other instability, left shoulder (principal); M25.562 Pain in left knee
CPT/HCPCS: 99213; G2211

== ENCOUNTER → 2025-04-15 10:59 | Outpatient (BNV) | payer MEDICARE, MEDICAID, SELFPAY | PROVIDERS: Visit Provider Radiology Diagnostic Radiology | DX: M19.012 Primary osteoarthritis, left shoulder (principal) | CPT/HCPCS: 73030 ==

== ENCOUNTER 2025-05-01 13:44 | Outpatient (REF) | payer MEDICARE, MEDICAID, SELFPAY ==
--- NOTE | ~2025-05-01 | MR_ITS ---
EXAMINATION: MR SHOULDER WITHOUT CONTRAST, LEFT TECHNIQUE: Multiplanar multisequence imaging through an upper extremity joint without contrast. INDICATION: M25.312 - Other instability, left shoulder PRIOR: April 15, 2025 x-ray FINDINGS: Rotator Cuff: 2 foci of low signal are present in supraspinatus tendon near the footprint. On x-ray, these demonstrate somewhat amorphous calcific densities consistent with hydroxyapatite deposition. There is mild edema like signal in the soft tissues immediately adjacent the calcifications. The 2 calcifications measure 7 mm diameter. Rotator cuff is intact. There is thickening and increased signal in subscapularis tendon consistent with tendinopathy. Labrum: Labrum appears intact. Long biceps tendon: The long biceps tendon is intact and not displaced from the groove. Acromioclavicular joint: AC joint demonstrates reactive marrow signal change, marginal saphenous, and degenerative irregularity. Angle formed between the plane of glenoid and undersurface acromion is narrow at 65 degrees. Acromial morphology is flat, type I. There is mildly increased fluid in the subacromial subdeltoid bursa. Axillary pouch: The axillary pouch is intact. Articular cartilage: There are no articular cartilage defects. Bones/Marrow: There is a benign bone island in the central glenoid. Soft tissues: There is no muscle edema, atrophy, or fatty streaking. MR/MR shoulder LT wo con IMPRESSION: Calcific tendinitis involving supraspinatus tendon at the footprint. Mild adjacent reactive subacromial subdeltoid bursitis. Moderate AC joint arthropathy and laterally downsloping acromion. Subscapularis hypertrophic tendinopathy. Electronically signed by: Joselo Luke MD 05/01/2025 02:34 PM EDT
--- OUTSIDE RECORDS SUMMARY | 2025-05-01 14:10 | XMS_ITS | Encounter Summary ---
Author Organization [facility] Address [address] [place] [address] Care Team Providers Care Egg Factory Worker Name Role Phone Unavailable Primary Care Provider Unavailabl e Encounter Details Date Type Department Care Team (Latest Contact Info) Description 11/26/2020 Lab Requisition [facility] COVID Drive Through [address] [place] [address] [address] [place] [address] Vincent Dockery MD [address] [place] [address] Encounter for laboratory testing for COVID-19 virus [...] Date/Time Associated Diagnosis Comments COVID-19 RT-PCR ([facility]) Routine 11/26/2020 4:32 PM EST Encounter for laboratory testing for COVID-19 virus [ICD-10-CM] documented in this encounter Results * COVID-19 RT-PCR ([facility]) (11/26/2020 4:32 PM EST) COVID-19 RT-PCR SARS-COV-2 NOT DETECTED Not Detected 11/28/2020 2:11 PM EST [employer] Comment: ADDITIONAL INFORMATION The [facility] COVID-19 RT-PCR Assay is Real-Time Reverse Special Programs Director Polymerase Chain Reaction (dx board operator-PCR) for the in vitro qualitative detection of three SARS-Cov-2 target sequences unique to the coronavirus disease 2019 (COVID-19). This is an Emergency Use Authorization (EUA) in vitro diagnostic (IVD) test that has been modified to include the [employer] automated liquid handler. Its analytical performance characteristics have been determined by the credit administration specialist and verified by The [facility] in a manner consistent with CLIA [...] at the following links: For Healthcare Providers: https://www.fda.gov/media/395136/download For Patients: https://www.HighRoads.gov/Black Duck Software/736332/download TEST LIMITATIONS Positive results are indicative of [...] system. For further details refer to the [employer] TaqPath COVID-19 Combo Kit EUA submission (https://www.HighRoads.gov/media/547773/download). ----- Test performed by The [facility], [address] [place] [address] CLIA# [id number] Smooth Nathan M.D., Ph.D., [facility], Clinical Drafter Directional Survey Microbiology Nasopharyngeal swab / Unknown 11/26/2020 4:32 PM EST 11/26/2020 4:32 PM EST Narrative [facility] - 11/28/2020 2:11 PM EST Performed at [facility], [address] [place] [address], [place], [place], [place] Lic [address], CLIA [id number] us Vincent Dockery MD MICROBIOLOGY - GENERAL ORDERA BLES Final Result [address] [place] [address] documented in this encounter Visit Diagnoses Diagnosis Encounter for laboratory testing for COVID-19 virus documented in this encounter
== END 2025-05-01 13:45 | disposition home or self-care (01) ==
LOC: HO.MRI 13:44
PROVIDERS: Visit Provider Orthopaedic Surgery
DX: M25.312 Other instability, left shoulder (principal); M75.32 Calcific tendinitis of left shoulder; M12.9 Arthropathy, unspecified
CPT/HCPCS: 73221

== ENCOUNTER → 2025-05-01 13:47 | Outpatient (BNV) | payer MEDICARE, MEDICAID, SELFPAY | PROVIDERS: Visit Provider Radiology Diagnostic Radiology | DX: M75.32 Calcific tendinitis of left shoulder (principal) | CPT/HCPCS: 73221 ==

== ENCOUNTER 2025-05-13 09:59 | Outpatient (AMB) | payer MEDICARE, MEDICAID, SELFPAY ==
[2025-05-13 10:11] VITALS: BMI 26.5
--- NOTE | 2025-05-13 10:11 | MHC.OFFVIS ---
Vital Signs 05/13/25 10:11 Height 5 ft 10 in Weight 185 lb BMI 26.5 Intake Visit Reasons: OV-Left shoulder MRI review Intake Note: Tima is a 64 year old right hand dominant male who presents with complaints of progressively worsening left shoulder pain and stiffness. The patient did undergo right shoulder surgery in 2021. He reports minimal discomfort in his right shoulder. He describes his left shoulder pain as sharp in nature. Most of the pain is along the medial aspect of his left shoulder. He did injure his shoulder approximately 1 year ago while lifting a heavy object. Since that time his symptoms have gotten worse. He has failed the last 6 weeks of conservative treatment which has included Tylenol, anti-inflammatory medicines, physical therapy exercises and a home exercise program. Allergies No Known Allergies Allergy (Verified 05/13/25 10:12) Medication List - Last Reconciled 05/13/25 by Patricio Sandoval MD ibuprofen 800 mg PO TID PRN methylprednisolone (Medrol (Michael)) PO PER PKG DIR omeprazole 20 mg PO DAILY PFSH Surgical History Hx of shoulder surgery History of ankle surgery Social History Patient Tobacco Use Status: Never used Tobacco Current occupational status: unemployed Current occupation: right hand dominant Physical Exam Vital Signs: BMI result Body Mass Index 26.5 Const Other: Well-nourished well-developed very friendly male awake alert and oriented x3 in no acute distress Extrem Other: Bilateral upper extremity examination shows good capillary refill, no skin lesions noted, normal sensation light touch Left shoulder examination shows decreased range of motion when compared to his right shoulder, 4+ out of 5 strength with supraspinatus testing, positive impingement signs, tenderness over his acromioclavicular joint, no instability Results Reviewed Results Reviewed: MRI of the patient's left shoulder show severe acromioclavicular joint narrowing, a type 3 acromion, signal change within the supraspinatus tendon most likely due to adhesive capsulitis Assessment & Plan Assessment & Plan (1) Impingement syndrome of left shoulder: Code(s): M75.42 - Impingement syndrome of left shoulder Category: Medical Plan Mr. Dueñas presents with progressively worsening left shoulder pain and stiffness due to impingement syndrome, acromioclavicular joint arthritis and adhesive capsulitis. I had a lengthy discussion with the patient regarding the treatment options. At this point he has failed continued non operative treatments. The risks and benefits of left shoulder arthroscopic surgery were discussed at length with the patient. The patient is interested in proceeding with surgery later this year when he returns from [facility]. He will contact my office to pick a surgery date when he is ready to do so. Surgery will involve left shoulder arthroscopic distal clavicle excision, left shoulder arthroscopic acromioplasty, left shoulder arthroscopic capsular release and left shoulder manipulation under anesthesia. The patient will continue with his range of motion exercises in the meantime. He will follow-up as instructed. I spent 20 minutes in reviewing the patient's records and imaging studies, seeing the patient and documenting in the medical record. Coding Level of Care Code Est Pt Level 3 (25862) Complex EM visit Add On G2211 Diagnoses Impingement syndrome of left shoulder M75.42
--- OUTSIDE RECORDS SUMMARY | 2025-05-13 10:40 | XMS_ITS | Encounter Summary ---
Author Organization [facility] Address [address] [place] [address] Care Team Providers Care Accounts Supervisor Name Role Phone Unavailable Primary Care Provider Unavailabl e Encounter Details Date Type Department Care Team (Latest Contact Info) Description 11/26/2020 Lab Requisition [facility] COVID Drive Through [address] [place] [address] [address] [place] [address] Vincent Dockery MD [address] [place] [address] Encounter for laboratory testing for COVID-19 virus [...] Date/Time Associated Diagnosis Comments COVID-19 RT-PCR ([facility]) Routine 11/26/2020 4:32 PM EST Encounter for laboratory testing for COVID-19 virus [ICD-10-CM] documented in this encounter Results * COVID-19 RT-PCR ([facility]) (11/26/2020 4:32 PM EST) COVID-19 RT-PCR SARS-COV-2 NOT DETECTED Not Detected 11/28/2020 2:11 PM EST [employer] Comment: ADDITIONAL INFORMATION The [facility] COVID-19 RT-PCR Assay is Real-Time Reverse News Production Assistant Polymerase Chain Reaction (bunker worker-PCR) for the in vitro qualitative detection of three SARS-Cov-2 target sequences unique to the coronavirus disease 2019 (COVID-19). This is an Emergency Use Authorization (EUA) in vitro diagnostic (IVD) test that has been modified to include the HereOrThere automated liquid handler. Its analytical performance characteristics have been determined by the weighmaster and verified by The [facility] in a manner consistent with [...] at the following links: For Healthcare Providers: https://www.fda.gov/media/424323/download For Patients: https://www.Foundations in Learning.gov/EVS Glaucoma Therapeutics/167061/download TEST LIMITATIONS Positive results are indicative of [...] system. For further details refer to the [employer] TaqPath COVID-19 Combo Kit EUA submission (https://www.Foundations in Learning.gov/media/751502/download). ----- Test performed by The [facility], [address] [place] [address] CLIA# [id number] Smooth Nathan M.D., Ph.D., [facility] [place] [place], Clinical Care Trainer Microbiology Nasopharyngeal swab / Unknown 11/26/2020 4:32 PM EST 11/26/2020 4:32 PM EST Narrative [facility] - 11/28/2020 2:11 PM EST Performed at [facility], [address] [place] [address], [place], [place], [place] Lic [address]695, CLIA [id number] us Vincent Dockery MD MICROBIOLOGY - GENERAL ORDERA BLES Final Result [address] [place] [address] documented in this encounter Visit Diagnoses Diagnosis Encounter for laboratory testing for COVID-19 virus documented in this encounter
--- OUTSIDE RECORDS SUMMARY | 2025-05-13 10:40 | XMS_ITS | Clinical Summary ---
Author Organization [facility] Address [address] [place] [address] Care Team Providers Care Hr Receptionist Name Role Phone Tima Ferguson MD Primary Care Provider [phone] Allergies No known active allergies Medications Medication [...] - Tdap) 01/04/2015 01/04/2005 Influenza Vaccine (#1) 2025 RSV Adult > 60+ Yrs or Pregn [...] age to complete this topic Care Teams Hr Receptionist Relationship Specialty Start Date End Date Vinagre, Faisal, MD [address] [place] [address] PCP - General Internal Medicine 05/31/21
--- OUTSIDE RECORDS SUMMARY | 2025-05-13 10:40 | XMS_ITS ---
Author Name [facility] Organization Unknown Problems Problem Status Onset Date Problem Type Date of Resoluti on Source Pain in left ankle and joints of left foot active EncounterDiagnosisAct HHCCT Encounters Encounter Type Encounter Reason Primary Diagnosis Location Date Ambulatory [facility] 05/28/2023 Care Team Organization Name Specialty Phone Email Start Date End Da te [facility] Primary Care 10/05/20222023
== END 2025-05-13 10:21 | disposition home or self-care (01) ==
LOC: HO.HOS 09:59
PROVIDERS: Visit Provider Orthopaedic Surgery
DX: M75.42 Impingement syndrome of left shoulder (principal)
CPT/HCPCS: 99213; G2211

== ENCOUNTER → 2025-05-13 09:59 | Outpatient (BNVA) | payer MEDICARE, MEDICAID, SELFPAY | PROVIDERS: Visit Provider Orthopaedic Surgery | DX: M25.512 Pain in left shoulder (principal); M25.511 Pain in right shoulder; M75.42 Impingement syndrome of left shoulder | CPT/HCPCS: 99212 ==

== ENCOUNTER 2025-08-05 08:12 | Outpatient (AMB) | payer MEDICARE, MEDICAID, SELFPAY ==
--- NOTE | 2025-08-05 08:14 | A.OFFVIS_ITS ---
Vital Signs 08/05/25 08:16 Height 5 ft 10 in Weight 185 lb BMI 26.5 Intake Visit Reasons: Preop LT shoulder 08/14/25 Intake Note: Tima is a 64 year old right hand dominant male who presents with complaints of progressively worsening left shoulder pain and stiffness. The patient did undergo right shoulder surgery in 2021. He reports minimal discomfort in his right shoulder. He describes his left shoulder pain as sharp in nature. Most of the pain is along the medial aspect of his left shoulder. He did injure his shoulder approximately 1 year ago while lifting a heavy object. Since that time his symptoms have gotten worse. He has failed the last 6 weeks of conservative treatment which has included Tylenol, anti-inflammatory medicines, physical therapy exercises and a home exercise program. Allergies No Known Allergies Allergy (Verified 08/05/25 08:18) Medication List - Last Reconciled 08/05/25 by Patricio Snadoval MD ibuprofen 800 mg PO TID PRN omeprazole 20 mg PO DAILY PFSH Surgical History Hx of shoulder surgery History of ankle surgery Social History Patient Tobacco Use Status: Never used Tobacco Current occupational status: unemployed Current occupation: right hand dominant Physical Exam Vital Signs: BMI result Body Mass Index 26.5 Const Other: Well-nourished well-developed very friendly male awake alert and oriented x3 in no acute distress Extrem Other: Left shoulder examination shows decreased active and passive range of motion when compared to his right shoulder, 4+ out of 5 strength with supraspinatus testing, positive impingement signs, tenderness over his acromioclavicular joint, no instability Results Reviewed Results Reviewed: MRI of the patient's left shoulder show severe acromioclavicular joint narrowing, a type 3 acromion, signal change within the supraspinatus tendon most likely due to adhesive capsulitis Assessment & Plan Assessment & Plan (1) Impingement syndrome of left shoulder: Code(s): M75.42 - Impingement syndrome of left shoulder Category: Medical Plan Mr. Dueñas presents with progressively worsening left shoulder pain and stif fness due to impingement syndrome, acromioclavicular joint arthritis and adhesive capsulitis. I had a lengthy discussion with the patient regarding the treatment options. At this point he has failed continued non operative treatments. The risks and benefits of left shoulder surgery were discussed at length with the patient. The patient wishes to proceed. Surgery will involve left shoulder arthroscopic distal clavicle excision, left shoulder arthroscopic acromioplasty, left shoulder arthroscopic capsular release and left shoulder manipulation under anesthesia. The patient was given a prescription for oxycodone at his preoperative appointment. He will follow-up as instructed. Feel free to call me at any time should questions regarding his orthopedic management arise. I spent 22 minutes in reviewing the patient's records and imaging studies, seeing the patient and documenting in the medical record. Medications: New oxycodone Partial Fill upon patient request. Take 1-2 tabs every 4 hours as needed for pain following her left shoulder surgery 10 mg (2 x 5 mg) PO Q4H PRN 40 tabs 0RF pain Coding Level of Care Code Est Pt Level 3 (98012) Complex EM visit Add On G2211 Diagnoses Impingement syndrome of left shoulder M75.42
[2025-08-05 08:16] VITALS: BMI 26.5
--- OUTSIDE RECORDS SUMMARY | 2025-08-05 08:30 | XMS_ITS | Clinical Summary ---
Author Organization [facility] Address [address] [place] [address] Care Team Providers Care Casino Operations Supervisor Name Role Phone Tima Ferguson MD Primary Care Provider [phone] Allergies No known active allergies Medications Medication [...] age to complete this topic Care Teams Casino Operations Supervisor Relationship Specialty Start Date End Date Vinagre, Faisal, MD [address] [place] [address] PCP - General Internal Medicine 05/31/21
--- OUTSIDE RECORDS SUMMARY | 2025-08-05 08:30 | XMS_ITS | Clinical Summary ---
Author Organization [facility] Address [address] [place] [address] Care Team Providers Care Gerontology Aide Name Role Phone Unavailable Primary Care Provider [...] Vaccine (1 of 2) 2012 Influenza Vaccine 06/05/2025 COVID-19 Vaccine (2023-2 5 season) 2025 RSV Vaccine 60 years and old er and Patients (1 - 1-dose 75+ series) 2037 Hepatitis B Vaccines Aged Out No long er eligible based on patient's age to complete this topic [facility]
--- OUTSIDE RECORDS SUMMARY | 2025-08-05 08:30 | XMS_ITS | Encounter Summary ---
Author Organization [facility] Address [address] [place] [address] Care Team Providers Care Sports Commentator Name Role Phone Unavailable Primary Care Provider Unavailabl e Encounter Details Date Type Department Care Team (Latest Contact Info) Description 11/26/2020 Lab Requisition [facility] COVID Drive Through [address] [place] [address] [address] [place] [address] Vincent Dockery MD [address] [place] [address] Encounter for laboratory testing for COVID-19 virus [...] Priority Date/Time Associated Diagnosis Comments COVID-19 RT-PCR ([facility]) Routine 11/26/2020 4:32 PM EST Encounter for laboratory testing for COVID-19 virus [ICD-10-CM] documented in this encounter Results * COVID-19 RT-PCR ([facility]) (11/26/2020 4:32 PM EST) COVID-19 RT-PCR SARS-COV-2 NOT DETECTED Not Detected 11/28/2020 2:11 PM EST [employer] Comment: ADDITIONAL INFORMATION The [facility] COVID-19 RT-PCR Assay is Real-Time Reverse Line Supervisor Polymerase Chain Reaction (floor sanding machine operator-PCR) for the in vitro qualitative detection of three SARS-Cov-2 target sequences unique to the coronavirus disease 2019 (COVID-19). This is an Emergency Use Authorization (EUA) in vitro diagnostic (IVD) test that has been modified to include the Lab[employer] automated liquid handler. Its analytical performance characteristics have been determined by the credit risk officer and verified by [facility] in a manner consistent with [...] at the following links: For Healthcare Providers: https://www.fda.gov/media/696748/download For Patients: https://www.SnapYeti.gov/Pavilion Data/558740/download TEST LIMITATIONS Positive results are indicative of [...] system. For further details refer to the [employer] TaqPath COVID-19 Combo Kit EUA submission (https://www.SnapYeti.gov/media/278792/download). ----- Test performed by [facility], [address] [place] [address] CLIA# [id number] Smooth Nathan M.D., Ph.D., [facility], Clinical Associate Director Microbiology Nasopharyngeal swab / Unknown 11/26/2020 4:32 PM EST 11/26/2020 4:32 PM EST Narrative [facility] - 11/28/2020 2:11 PM EST Performed at [facility], [address] [place] [address], [place], [place], [place] Lic 0695, CLIA [id number] us Vincent Dockery MD MICROBIOLOGY - GENERAL ORDERA BLES Final Result [address] [place] [address] documented in this encounter Visit Diagnoses Diagnosis Encounter for laboratory testing for COVID-19 virus documented in this encounter
== END 2025-08-05 08:35 | disposition home or self-care (01) ==
LOC: HO.HOS 08:12
PROVIDERS: PCP Internal Medicine; Visit Provider Orthopaedic Surgery
DX: M75.42 Impingement syndrome of left shoulder (principal)
CPT/HCPCS: 99214; G2211

== ENCOUNTER → 2025-08-05 08:12 | Outpatient (BNVA) | payer MEDICARE, MEDICAID, SELFPAY | PROVIDERS: PCP Internal Medicine; Visit Provider Orthopaedic Surgery | DX: M75.42 Impingement syndrome of left shoulder (principal) | CPT/HCPCS: 99212 ==

== ENCOUNTER 2025-08-14 06:56 | Day surgery (SDC) | payer MEDICARE, MEDICAID, SELFPAY ==
--- OUTSIDE RECORDS SUMMARY | 2025-07-09 10:49 | XMS_ITS | Clinical Summary ---
Author Organization [facility] Address [address] [place] [address] Care Team Providers Care Manager Economic Name Role Phone Unavailable Primary Care Provider [...] patient's age to complete this topic Insurance [facility]
--- OUTSIDE RECORDS SUMMARY | 2025-07-09 10:49 | XMS_ITS | Encounter Summary ---
Author Organization [facility] Address [address] [place] [address] Care Team Providers Care Fleet Operations Manager Name Role Phone Unavailable Primary Care Provider Unavailabl e Encounter Details Date Type Department Care Team (Latest Contact Info) Description 11/26/2020 Lab Requisition [facility] COVID Drive Through [address] [place] [address] [address] [place] [address] Vincent Dockery MD [address] [place] [address] Encounter for laboratory testing for COVID-19 virus [...] Date/Time Associated Diagnosis Comments COVID-19 RT-PCR ([facility]) Routine 11/26/2020 4:32 PM EST Encounter for laboratory testing for COVID-19 virus [ICD-10-CM] documented in this encounter Results * COVID-19 RT-PCR ([facility]) (11/26/2020 4:32 PM EST) COVID-19 RT-PCR SARS-COV-2 NOT DETECTED Not Detected 11/28/2020 2:11 PM EST [employer] Comment: ADDITIONAL INFORMATION The [facility] COVID-19 RT-PCR Assay is Real-Time Reverse Gimp Buttonhole Machine Operator Polymerase Chain Reaction (process improvement consultant-PCR) for the in vitro qualitative detection of three SARS-Cov-2 target sequences unique to the coronavirus disease 2019 (COVID-19). This is an Emergency Use Authorization (EUA) in vitro diagnostic (IVD) test that has been modified to include the PellePharm automated liquid handler. Its analytical performance characteristics have been determined by the printer technician and verified by The [facility] in a manner consistent with [...] at the following links: For Healthcare Providers: https://www.fda.gov/media/762288/download For Patients: https://www.Volvant.gov/Reko Global Water/120779/download TEST LIMITATIONS Positive results are indicative of [...] system. For further details refer to the [employer] TaqPath COVID-19 Combo Kit EUA submission (https://www.Volvant.gov/media/343394/download). ----- Test performed by The [facility], [address] [place] [address] CLIA# [id number] Smooth Nathan M.D., Ph.D., [facility] [place], Clinical Outreach Director Microbiology Nasopharyngeal swab / Unknown 11/26/2020 4:32 PM EST 11/26/2020 4:32 PM EST Narrative [facility] - 11/28/2020 2:11 PM EST Performed at [facility], [address] [place] [address], [place], [place], [place] Lic [address], CLIA [id number] us Vincent Dockery MD MICROBIOLOGY - GENERAL ORDERA BLES Final Result [address] [place] [address] documented in this encounter Visit Diagnoses Diagnosis Encounter for laboratory testing for COVID-19 virus documented in this encounter
--- OUTSIDE RECORDS SUMMARY | 2025-07-09 10:49 | XMS_ITS | Clinical Summary ---
Author Organization [facility] Address [address] [place] [address] Care Team Providers Care Slubber Runner Name Role Phone Tima Ferguson MD Primary Care Provider [phone] Allergies No known active allergies Medications Medication [...] age to complete this topic Care Teams Slubber Runner Relationship Specialty Start Date End Date Vinagre, Faisal, MD [address] [place] [address] PCP - General Internal Medicine 05/31/21
[2025-08-07 08:08] VITALS: BMI 26.5
--- NOTE | 2025-08-07 13:05 | P.CONAN_ITS ---
Documented by User: Arielle Washburn NP 08/13/25 12:29 HPI - Anesthesia Eval Consult details Narrative: 64yo M for Left Shoulder Arthroscopy Acromioplasty distal clavicle excision, capsular release and manipulation, 08/14/25 [facility] Active Problems Active Problems: All Active Problems Impingement syndrome of left shoulder (Acute) Impingement syndrome of left shoulder (Acute) Rotator cuff insufficiency of left shoulder (Acute) Left shoulder pain (Acute) Tear of medial meniscus of left knee (Acute) Left knee pain (Acute) Acquired deformity of right elbow (Acute) Tear of medial meniscus of right knee (Acute) Right knee pain (Acute) Right shoulder pain (Acute) Past Medical History Medical History Dysphagia Rhinitis Constipation Surgical History Surgical History History of esophagogastroduodenoscopy (EGD) H/O colonoscopy Hx of shoulder surgery (~2021) History of ankle surgery Social History Social History Patient Tobacco Use Status: Never used Tobacco Use of substances other than those prescribed or required for medical reasons: No Have you been hit, kicked, punched, or otherwise hurt by someone within the past year? If so, by whom?: No Are you DNR?: No Advance Directives: No Advance Directives Information Provided: Yes Advance Directives on File: No Poor oral hygiene: Yes Current occupational status: unemployed Current occupation: right hand dominant Meds Allergies Allergy/AdvReac Type Severity Reaction Status Date / Time No Known Allergies Allergy Verified 08/05/25 08:18 Home Medications ?Medication ?Instructions ?Recorded ?Confirmed ?Last Taken ?Type ibuprofen 800 mg tablet 800 mg PO TID PRN Pain 10/1608/07/25 Unknown History omega 7-eiu-flf-fish oil 1,000 mg 1 cap PO DAILY 08/0708/07/25 Unknown History (120 mg-180 mg) capsule (Fish Oil) Exam Height,Weight and Vital Signs: Height 5 ft 10 in Weight 83.915 kg Pertinent Lab Results Pertinent Lab Results: CBC and CMP 02/2025 at [facility] Assessment and Plan Assessment Anesthesia Assessment: Chart Reviewed Documented by User: Cassie Avila MD 08/14/25 07:55 PMFSH Past Medical History Medical History Dysphagia Rhinitis Constipation Family History Family history of problems with anesthesia: No Surgical History Surgical History History of esophagogastroduodenoscopy (EGD) H/O colonoscopy Hx of shoulder surgery (~2021) History of ankle surgery History of Problems with Anesthesia: No Social History Social History Patient Tobacco Use Status: Never used Tobacco Use of substances other than those prescribed or required for medical reasons: No Have you been hit, kicked, punched, or otherwise hurt by someone within the past year? If so, by whom?: No Are you DNR?: No Advance Directives: No Advance Directives Information Provided: Yes Advance Directives on File: No Poor oral hygiene: Yes Current occupational status: unemployed Current occupation: right hand dominant Meds Allergies Allergy/AdvReac Type Severity Reaction Status Date / Time No Known Allergies Allergy Verified 08/05/25 08:18 Home Medications ?Medication ?Instructions ?Recorded ?Confirmed ?Last Taken ?Type ibuprofen 800 mg tablet 800 mg PO TID PRN Pain 10/1608/07/25 Unknown History omega 6-tna-tja-fish oil 1,000 mg 1 cap PO DAILY 08/0708/07/25 Unknown History (120 mg-180 mg) capsule (Fish Oil) Exam Airway Mallampati Class: II TM Dist: >3cm Neck ROM: Full Heart: rrr Lungs: cta Assessment and Plan Assessment Anesthesia Assessment: Anesthesia Plan Discussed Final Anesthetic Review Family History of Problems with Anesthesia: No History of Problems with Anesthesia: No NPO: Yes ASA Class: II Final Preanesthetic Review: No Changes in Pt Med Stat, Meds/Allgs Chart Reviewed, Consent Obtained/Reviewed and Anes Risks/Benef Reviewed Patient Risk: Low Procedure Risk: Intermediate Anesthetic Plan Anesthetic Plan: GA, Regional Block and Agree w/ Assess. and Plan Disposition: Standard PACU, Extended PACU and Inp. Admit - Standard Bed
[2025-08-14 07:20] VITALS: BP 130/75; PULSE 59; RESP 16; TEMP 36; O2SAT 97
[2025-08-14] MEDS: Lactated Ringers 1,000 ML 100 ML IVCONT (07:22)
[2025-08-14 10:25] VITALS: BP 139/80; PULSE 76; RESP 12; TEMP 36.1; O2SAT 97
[2025-08-14 10:30] VITALS: BP 130/74; PULSE 64; RESP 14; O2SAT 97
--- NOTE | 2025-08-14 10:31 | P.BOP_ITS ---
Brief Operative Note Date of Service: 08/14/25 Pre-op diagnosis: Left shoulder impingement syndrome, left shoulder acromioclavicular joint arthritis, left shoulder adhesive capsulitis Post-op diagnosis: same Procedure: Left shoulder arthroscopic distal clavicle excision, left shoulder arthroscopic acromioplasty, left shoulder arthroscopic anterior capsular release, left shoulder manipulation under anesthesia Implants: none Surgeon: Patricio Sandoval MD Anesthesia: GETA and regional Was an Traffic Technician used for this Procedure?: No Estimated blood loss (mL): 10 Pathology: none sent Condition: stable Disposition: PACU
--- NOTE | 2025-08-14 10:32 | W.PM.OPN ---
Operative Note Operative Note Date of Service: 08/14/25 Narrative: After the patient was identified as Tima Dueñas and his left shoulder was initialed by myself the patient was brought to the holding area where a left shoulder interscalene regional block was performed by the anesthesiologist in routine fashion. The patient was then brought to the operating room where general anesthesia was induced by the anesthesiologist in routine fashion. The patient was given 2 g of IV Ancef preoperatively for infection prophylaxis. Examination under anesthesia of the patient's left shoulder showed decreased range of motion when compared to the right shoulder. The patient's left shoulder had forward flexion to 130 degrees compared to 170 degrees, external rotation to 30 degrees compared to 60 degrees, and internal rotation to 40 degrees compared to 50 degrees. The patient was gently positioned in the beach chair position with all bony prominences well padded. The patient's left shoulder region and upper extremity were prepped and draped in sterile fashion. A formal time-out was completed. A #11 scalpel blade was used to make a posterior portal 2 cm inferior and 1 cm medial to the posterolateral corner of the acromion. Blunt trocar technique was used to enter the glenohumeral joint in routine fashion. An anterior portal was made just lateral to the coracoid process after proper positioning was confirmed using a spinal needle. Diagnostic arthroscopy showed minimal degenerative changes of the glenoid and humeral head articular surfaces. There was no evidence of rotator cuff tearing. There was no evidence of injury to the biceps tendon or its insertion onto the glenoid. There was inflammation of the anterior joint capsule consistent with adhesive capsulitis. The ArthroCare Wand was then used to perform an anterior capsular release between the inferior border of the biceps tendon and the superior border of the subscapularis tendon. The arthroscope was then placed from the posterior portal into the subacromial space. A lateral portal was made 2 fingerbreadths lateral to the anterior lateral corner of the acromion. The ArthroCare Wand was used to ablate soft tissues along the undersurface of the acromion as well as to excise the coracoacromial ligament. There was a sharp spur along the undersurface of the acromion which was removed using the hooded bur. The arthroscope was then placed into the lateral portal and the acromioplasty was completed with the bur in the posterior portal using the posterior aspect of the acromion as a cutting block. The ArthroCare Wand was then brought in through the anterior portal and was used to ablate soft tissues along the acromioclavicular joint and distal clavicle. The posterior and superior ligamentous structures were left intact. A distal clavicle excision of 8 mm was performed using the hooded bur. Any remaining bursal tissue was removed using the arthroscopic shaver. The subacromial space was irrigated and then drained. All arthroscopic instruments were removed. A gentle manipulation under anesthesia was then performed. Full passive range of motion was easily attained. The 3 portals were closed with 3-0 nylon interrupted suture. The subacromial space was injected with Marcaine. Dry sterile dressing was placed over all incisions. The patient's left upper extremity was placed into a sling. The patient was awoken and extubated in the operating room. The patient was transferred to the recovery room in stable condition.
[2025-08-14 10:35] VITALS: BP 125/72; PULSE 64; RESP 14; O2SAT 97
[2025-08-14 10:40] VITALS: BP 131/72; PULSE 80; RESP 14; O2SAT 93
[2025-08-14 10:55] VITALS: BP 135/81; PULSE 75; RESP 15; TEMP 36.1; O2SAT 95
== END 2025-08-14 12:00 | disposition home or self-care (01) ==
PROVIDERS: PCP Physician Assistant; Visit Provider Orthopaedic Surgery
PROC: (CPT 29805; principal; 2025-08-14 09:00)
DX: M75.42 Impingement syndrome of left shoulder (principal); M75.02 Adhesive capsulitis of left shoulder; M25.512 Pain in left shoulder; M19.012 Primary osteoarthritis, left shoulder; M25.612 Stiffness of left shoulder, not elsewhere classified; Z79.1 Long term (current) use of non-steroidal anti-inflammatories (NSAID); Z79.899 Other long term (current) drug therapy; Z98.890 Other specified postprocedural states; Z56.0 Unemployment, unspecified
CPT/HCPCS: 29824; 29825; 29826; J0131; J0665; J0690; J0696; J1100; J2003; J2250; J2405; J2704; J2795; J3010

== ENCOUNTER → 2025-08-14 06:56 | Outpatient (BNV) | payer MEDICARE, MEDICAID, SELFPAY | PROVIDERS: PCP Physician Assistant; Visit Provider Orthopaedic Surgery | DX: M75.42 Impingement syndrome of left shoulder (principal); M19.012 Primary osteoarthritis, left shoulder; M75.02 Adhesive capsulitis of left shoulder | CPT/HCPCS: 29824; 29826 ==

== ENCOUNTER 2025-08-27 11:42 | Outpatient (AMB) | payer MEDICARE, MEDICAID, SELFPAY ==
--- NOTE | 2025-08-27 11:44 | A.OFFVIS_ITS ---
Intake Visit Reasons: PO LT shoulder 08/14/25 Intake Note: Tima is a 64 year old male who presents with complaints of mild to moderate discomfort in his left shoulder after undergoing left shoulder arthroscopic surgery on 08/14/2025. He is no longer taking narcotics for his discomfort. He does take ibuprofen as needed. He denies any fevers or chills. Allergies No Known Allergies Allergy (Verified 08/27/25 11:44) PFSH Medical History Dysphagia Rhinitis Constipation Surgical History (Updated 08/27/25 @ 11:56 by THADDEUS Ornelas) History of arthroscopic surgery of shoulder (~08/14/25) History of esophagogastroduodenoscopy (EGD) H/O colonoscopy Hx of shoulder surgery (~2021) History of ankle surgery Social History Are you a primary physician assistant primary care to a significant other at home: No Do you presently have visiting nurse or other home services: No Patient Tobacco Use Status: Never used Tobacco Current occupational status: unemployed Current occupation: right hand dominant Physical Exam Extrem Other: Left shoulder examination shows that the surgical incisions are healing well, no erythema, almost full range of motion when compared to his right shoulder, no instability Assessment & Plan Assessment & Plan (1) Left shoulder pain: Code(s): M25.512 - Pain in left shoulder Category: Medical Plan Tima is doing very well after undergoing left shoulder arthroscopic surgery on 08/14/2025. His sutures were removed and Steri-Strips placed over his incisions. He will continue with his range of motion exercises. The do's and don'ts of lifting were discussed at length with the patient. Will contact me prior to his follow-up appointment in 2 months should any questions or concerns arise. Feel free to call me at any time should questions regarding his orthopedic management arise. Coding Level of Care Code Global (42035) Diagnoses Left shoulder pain M25.512
--- OUTSIDE RECORDS SUMMARY | 2025-08-27 14:56 | XMS_ITS | Clinical Summary ---
Author Organization [facility] Address [address] [place] [address] Care Team Providers Care Song Plugger Name Role Phone Unavailable Primary Care Provider [...] Vaccine (2023-2 5 season) 2025 RSV Vaccine 50 years and old er and Patients (1 - 1-dose 75+ series) 2037 Hepatitis B Vaccines Aged Out No long er eligible based on patient's age to complete this topic Insurance [facility]
--- OUTSIDE RECORDS SUMMARY | 2025-08-27 14:56 | XMS_ITS | Clinical Summary ---
Author Organization [facility] Address [address] [place] [address] Care Team Providers Care Junior Media Buyer Name Role Phone Tima Ferguson MD Primary Care Provider [phone] Allergies No known active allergies Medications Medication [...] age to complete this topic Care Teams Junior Media Buyer Relationship Specialty Start Date End Date Vinagre, Faisal, MD [address] [place] [address] PCP - General Internal Medicine 05/31/21
--- OUTSIDE RECORDS SUMMARY | 2025-08-27 14:56 | XMS_ITS | Encounter Summary ---
Author Organization [facility] Address [address] [place] [address] Care Team Providers Care Hotel Casino Floorperson Name Role Phone Unavailable Primary Care Provider Unavailabl e Encounter Details Date Type Department Care Team (Latest Contact Info) Description 11/26/2020 Lab Requisition [facility] COVID Drive Through [address] [place] [address] [address] [place] [address] Vincent Dockery MD [address] [place] [address] Encounter for laboratory testing for COVID-19 virus [...] Date/Time Associated Diagnosis Comments COVID-19 RT-PCR ([facility]) Routine 11/26/2020 4:32 PM EST Encounter for laboratory testing for COVID-19 virus [ICD-10-CM] documented in this encounter Results * COVID-19 RT-PCR ([facility]) (11/26/2020 4:32 PM EST) COVID-19 RT-PCR SARS-COV-2 NOT DETECTED Not Detected 11/28/2020 2:11 PM EST ([employer] Comment: ADDITIONAL INFORMATION The [facility] COVID-19 RT-PCR Assay is Real-Time Reverse Drafter Heating And Ventilating Polymerase Chain Reaction (crabbing machine operator-PCR) for the in vitro qualitative detection of three SARS-Cov-2 target sequences unique to the coronavirus disease 2019 (COVID-19). This is an Emergency Use Authorization (EUA) in vitro diagnostic (IVD) test that has been modified to include the [employer] automated liquid handler. Its analytical performance characteristics have been determined by the seaport planning manager and verified by [facility] in a manner consistent with CLIA [...] at the following links: For Healthcare Providers: https://www.fda.gov/media/337098/download For Patients: https://www.Servis1[employer] Bank.gov/Securant/933404/download TEST LIMITATIONS Positive results are indicative of [...] system. For further details refer to the [employer] TaqPath COVID-19 Combo Kit EUA submission (https://www.Servis1[employer] Bank.gov/media/965136/download). ----- Test performed by [facility], [address] [place] [address] CLIA# [id number] Smooth Nathan M.D., Ph.D., [facility], Clinical Director Of Knowledge Management Microbiology Nasopharyngeal swab / Unknown 11/26/2020 4:32 PM EST 11/26/2020 4:32 PM EST Narrative [facility] - 11/28/2020 2:11 PM EST Performed at [facility], [address] [place] [address], [place], [place], [place] Lic [address]695, CLIA [id number] us Vincent Dockery MD MICROBIOLOGY - GENERAL ORDERA BLES Final Result [address] [place] [address] documented in this encounter Visit Diagnoses Diagnosis Encounter for laboratory testing for COVID-19 virus documented in this encounter
== END 2025-08-27 12:06 | disposition home or self-care (01) ==
LOC: HO.HOS 11:42
PROVIDERS: PCP Internal Medicine; Visit Provider Orthopaedic Surgery
DX: M25.512 Pain in left shoulder (principal)
CPT/HCPCS: 99024

== ENCOUNTER → 2025-08-27 11:42 | Outpatient (BNVA) | payer MEDICARE, MEDICAID, SELFPAY | PROVIDERS: PCP Internal Medicine; Visit Provider Orthopaedic Surgery | DX: M25.512 Pain in left shoulder (principal); Z98.890 Other specified postprocedural states | CPT/HCPCS: 99212 ==

== ENCOUNTER 2025-10-28 09:18 | Outpatient (AMB) | payer MEDICARE, MEDICAID, SELFPAY ==
--- OUTSIDE RECORDS SUMMARY | 2025-10-28 09:22 | XMS_ITS | Clinical Summary ---
Author Organization [facility] 04/04/25 Address [address] [place] [address] Care Team Providers Care Driver Medic Name Role Phone Tima Ferguson MD Primary Care Provider [phone] Allergies No known active allergies Medications Medication [...] age to complete this topic Care Teams Driver Medic Relationship Specialty Start Date End Date Tima Ferguson MD [address] [place] [address] PCP - General Internal Medicine 05/31/21
--- NOTE | 2025-10-28 09:24 | A.OFFVIS_ITS ---
Vital Signs 10/28/25 09:29 Height 5 ft 10 in Weight 185 lb BMI 26.5 Intake Visit Reasons: PO LT shoulder 08/14/25 Intake Note: Tima is a 64 year old male who presents with complaints of mild to moderate discomfort in his left shoulder after undergoing left shoulder arthroscopic surgery on 02/12/2025. The patient states that he aggravated his left shoulder last weekend while moving a mattress. He continues with his home stretching program. He denies any fevers or chills. Allergies No Known Allergies Allergy (Verified 08/27/25 11:44) Medication List - Last Reconciled 10/30/25 by Patricio Sandoval MD No Known Home Meds PENDING SALE TO [facility] Medical History Dysphagia Rhinitis Constipation Surgical History (Updated 08/27/25 @ 11:56 by THADDEUS Ornelas) History of arthroscopic surgery of shoulder (~08/14/25) History of esophagogastroduodenoscopy (EGD) H/O colonoscopy Hx of shoulder surgery (~2021) History of ankle surgery Social History Are you a primary acute care physical therapist to a significant other at home: No Do you presently have visiting nurse or other home services: No Patient Tobacco Use Status: Never used Tobacco Current occupational status: unemployed Current occupation: right hand dominant Physical Exam Vital Signs: BMI result Body Mass Index 26.5 Extrem Other: Left shoulder examination shows that the surgical incisions are well healed, no erythema, slightly decreased range of motion when compared to his right shoulder, 5/5 strength with supraspinatus testing, no instability Assessment & Plan Assessment & Plan (1) Left shoulder pain: Code(s): M25.512 - Pain in left shoulder Category: Medical Plan Mr. Dueñas continues to do well after undergoing left shoulder arthroscopic surgery on 08/14/2025. He will continue with his home stretching program. The do's and don'ts of lifting were discussed at length with the patient. He will contact me prior to his follow-up appointment in 2 months should any questions or concerns arise. Feel free to call me at any time should questions regarding his orthopedic management arise. Coding Level of Care Code Global (04522) Diagnoses Left shoulder pain M25.512
[2025-10-28 09:29] VITALS: BMI 26.5
== END 2025-10-28 10:02 | disposition home or self-care (01) ==
LOC: HO.HOS 09:19
PROVIDERS: PCP Internal Medicine; Visit Provider Orthopaedic Surgery
DX: M25.512 Pain in left shoulder (principal)
CPT/HCPCS: 99024

== ENCOUNTER → 2025-10-28 09:18 | Outpatient (BNVA) | payer MEDICARE, MEDICAID, SELFPAY | PROVIDERS: PCP Internal Medicine; Visit Provider Orthopaedic Surgery | DX: M25.512 Pain in left shoulder (principal); Z98.890 Other specified postprocedural states | CPT/HCPCS: 99212 ==